=== PATIENT | female | born 1955 | race Caucasian/White ===

== ENCOUNTER 2020-05-03 07:04 | Day surgery (SDC) | payer BC, OTHER ==
[~2020-05-03 07:04] MED LIST: Lactated Ringers 1,000 ML IV SCH
[2020-05-03] MEDS ORDERED: Propofol 200 MG/20 ML SDV ONE (08:44)
[2020-05-03] MEDS ORDERED: Midazolam 1 MG/ML 2 ML SDV ONE (08:44)
[2020-05-03] MEDS ORDERED: Ondansetron 4 MG/2 ML SDV ONE (08:54)
[2020-05-03] MEDS ORDERED: fentaNYL 100 MCG/2 ML SDV ONE (08:54)
--- NOTE | 2020-05-03 12:42 | OR ---
DATE OF SURGERY: 05/03/2020. REFERRING PROVIDER: Lizz Krishnamurthy MD PRE-OPERATIVE DIAGNOSES: Positive FIT stool card. This is the patient's first colonoscopy. She denies any family history of colon cancer or advanced polyps. POST-OPERATIVE DIAGNOSES: 1. Three small polyps removed using cold forceps. a. 4 mm polyp at 30 cm. b. 3 mm polyp x2 at 12 cm. 2. Mild sigmoid diverticulosis. 3. Moderate hemorrhoids. 4. Normal distal ileum. PROCEDURE: Colonoscopy with polypectomy x3 using cold forceps. SURGEON: Skyler Robles M.D. ANESTHESIA: Monitored anesthesia care. BOWEL PREP: Good. Nikki is a 64-year-old female who was brought to the endoscopy suite after discussing risks and benefits of the procedure. Informed consent was obtained for conscious sedation and colonoscopy with or without biopsy and/or polypectomy. We also discussed possibility of missed lesions. Pre-procedure exam was unremarkable. IV, oxygen, and monitors were placed. The patient was placed in the left lateral decubitus position. Sedation was administered and a digital rectal exam was performed and was remarkable for some [id number] external hemorrhoids. Colonoscope was passed into the rectum and slowly advanced all the way to the cecum. Cecum was viewed and photographed. The ileocecal valve was intubated and distal ileum was normal in appearance. The colonoscope was slowly withdrawn and the mucosa was closed observed in a direct circumferential manner. The ascending colon was unremarkable. The transverse colon was unremarkable. The descending colon was unremarkable. The sigmoid colon revealed 4 mm polyp at 30 cm which was removed using 2 bites of cold forceps. There was also some mild sigmoid diverticulosis noted. At the rectosigmoid junction, there was a 3 mm polyp x2 at around 10 to 12 cm from the anal verge. These were removed using cold forceps. Retroflexion was performed and rectal mucosa was remarkable for moderate hemorrhoids. Scope was removed. The patient tolerated the procedure well. The patient was monitored until that baseline status. Discharge instructions were reviewed and the patient was discharged in good condition. COMPLICATIONS: None. TOTAL TIME: 14 minutes. ESTIMATED BLOOD LOSS: Less than 1 mL. RECOMMENDATIONS/FOLLOW-UP: We will await results of path report to determine ideal followup interval. I would like to kindly thank Lizz Krishnamurthy for this referral. DMB: 05/03/2020 09:32:28 MODL: 05/03/2020 12:04:41 /[id number]
== END 2020-05-03 09:55 | disposition home or self-care (01) ==
LOC: VM.SDS 07:04
PROVIDERS: ATTEND Family Medicine
DX: D12.5 Benign neoplasm of sigmoid colon (principal); K62.1 Rectal polyp; K57.30 Diverticulosis of large intestine without perforation or abscess without bleeding; K64.9 Unspecified hemorrhoids; I10 Essential (primary) hypertension; M54.41 Lumbago with sciatica, right side; M54.42 Lumbago with sciatica, left side; Z11.59 Encounter for screening for other viral diseases; Z79.899 Other long term (current) drug therapy; Z88.2 Allergy status to sulfonamides; Z72.0 Tobacco use
CPT/HCPCS: 00811; J2250; J2405; J2704; J3010; J7120; U0002

== ENCOUNTER 2022-11-23 17:48 | Inpatient (IN) | payer MEDICARE ==
[2022-11-23] MEDS ORDERED: Albuterol/Ipratropium 3.0-0.5 MG/3 ML Neb Soln NEB ONE (17:55)
[2022-11-23] MEDS ORDERED: methylPREDNISolone Sodium Succinate 125 MG/2 ML SDV IV ONE (17:58)
[2022-11-23] MEDS ORDERED: Azithromycin 500 MG in Sodium Chloride 0.9% 250 ML IV ONE (18:17)
[2022-11-23] MEDS ORDERED: cefTRIAXone 2 GM Vial IVPUSH ONE (18:17)
[2022-11-23 18:43] LABS: PTT,PARTIAL THROMBOPLSTIN TIME 26.5 SEC (20.5-30.9)
[2022-11-23 18:52] LABS: CHLORIDE,CL 84 mmol/L (98-107)
[2022-11-23 18:56] LABS: ANION GAP 8.3 mmol/L (5-15); ESTIMATED GFR 80 mL/min (>=60); SODIUM,NA 123 mmol/L (136-145)
[2022-11-23 18:59] LABS: CORONAVIRUS COVID-19 NAA NEGATIVE (NEGATIVE)
[2022-11-23 19:00] LABS: RESPIRATORY SYNCYTIAL VIR NAA NEGATIVE (NEGATIVE)
[2022-11-23 19:00] LABS: PCO2 ARTERIAL,POC 58 mmHg (35-48)
[2022-11-23] MEDS ORDERED: Sodium Chloride 0.9% 1,000 ML IV SCH (19:15)
[2022-11-23] MEDS: Albuterol/Ipratropium 3.0-0.5 MG/3 ML Neb Soln NEB SCH (20:18)
[2022-11-23] MEDS: Pantoprazole 40 MG Vial IVPUSH SCH (20:20)
[2022-11-23] MEDS: atorvaSTATin 10 MG Tab PO SCH (20:20)
[2022-11-23] MEDS: Nicotine 21 MG/24 Hr Patch TRDERM SCH (20:21)
[2022-11-23] MEDS ORDERED: Furosemide 20 MG/2 ML VIAL IV ONE (23:00)
[2022-11-23] MEDS: NS + KCl 20mEq/L 1,000 ML IV SCH (23:38)
[2022-11-24] MEDS: methylPREDNISolone Sodium Succinate 125 MG/2 ML SDV IVPUSH SCH ×3 (01:19→17:07)
[2022-11-24] MEDS: Sodium Chloride 0.9% 10 ML Syringe FLUSH PRN (01:24)
[2022-11-24] MEDS: NS + KCl 20mEq/L 1,000 ML IV SCH ×2 (06:40→17:14)
[2022-11-24 07:36] LABS: ANION GAP 7.7 mmol/L (5-15)
[2022-11-24] MEDS: Albuterol/Ipratropium 3.0-0.5 MG/3 ML Neb Soln NEB SCH ×4 (07:47→20:17)
[2022-11-24] MEDS: Nicotine 21 MG/24 Hr Patch TRDERM SCH (08:48)
[2022-11-24] MEDS: Venlafaxine 75 MG Cap.ER PO SCH (08:49)
[2022-11-24] MEDS: cefTRIAXone 2 GM Vial IVPUSH SCH (08:49)
[2022-11-24] MEDS: Pantoprazole 40 MG Vial IVPUSH SCH (08:49)
[2022-11-24] MEDS: Azithromycin 250 MG Tab PO SCH (08:50)
[2022-11-24] MEDS: Magnesium Oxide 400 MG Tab PO SCH (08:50)
[2022-11-24] MEDS: Potassium Chloride 20 MEQ Tab.ER PO SCH (08:50)
[2022-11-24] MEDS: Lisinopril 5 MG Tab PO SCH (08:51)
[2022-11-24] MEDS: Furosemide 20 MG Tab PO SCH (09:07)
[2022-11-24] MEDS ORDERED: Albuterol/Ipratropium 3.0-0.5 MG/3 ML Neb Soln NEB PRN (18:58)
[2022-11-24] MEDS: atorvaSTATin 10 MG Tab PO SCH (20:16)
[2022-11-24] MEDS: Pantoprazole 40 MG Tab.CR PO SCH (20:17)
[2022-11-25] MEDS: Sodium Chloride 0.9% 10 ML Syringe FLUSH PRN ×3 (01:04→20:45)
[2022-11-25] MEDS: methylPREDNISolone Sodium Succinate 125 MG/2 ML SDV IVPUSH SCH ×3 (01:04→20:42)
[2022-11-25] MEDS: NS + KCl 20mEq/L 1,000 ML IV SCH (05:49)
[2022-11-25 07:02] LABS: CHLORIDE,CL 94 mmol/L (98-107); SODIUM,NA 132 mmol/L (136-145)
[2022-11-25 07:03] LABS: ANION GAP 9.1 mmol/L (5-15); ESTIMATED GFR 80 mL/min (>=60)
[2022-11-25] MEDS: Albuterol/Ipratropium 3.0-0.5 MG/3 ML Neb Soln NEB SCH ×4 (07:20→20:02)
[2022-11-25] MEDS: Potassium Chloride 20 MEQ Tab.ER PO SCH (08:20)
[2022-11-25] MEDS: Magnesium Oxide 400 MG Tab PO SCH (08:20)
[2022-11-25] MEDS: Venlafaxine 75 MG Cap.ER PO SCH (08:21)
[2022-11-25] MEDS: Furosemide 20 MG Tab PO SCH (08:21)
[2022-11-25] MEDS: Azithromycin 250 MG Tab PO SCH (08:21)
[2022-11-25] MEDS: Lisinopril 5 MG Tab PO SCH (08:21)
[2022-11-25] MEDS: cefTRIAXone 2 GM Vial IVPUSH SCH (08:22)
[2022-11-25] MEDS: Nicotine 21 MG/24 Hr Patch TRDERM SCH (13:04)
[2022-11-25] MEDS ORDERED: Acetaminophen 325 MG Tab PO PRN (19:58)
[2022-11-25] MEDS: atorvaSTATin 10 MG Tab PO SCH (20:04)
[2022-11-25] MEDS: Pantoprazole 40 MG Tab.CR PO SCH (20:04)
[2022-11-26] MEDS: Acetaminophen 325 MG Tab PO PRN ×2 (02:16→08:19)
[2022-11-26] MEDS: Albuterol 0.083% 2.5 MG/3 ML Neb Soln NEB PRN (02:20)
[2022-11-26] MEDS: Albuterol/Ipratropium 3.0-0.5 MG/3 ML Neb Soln NEB SCH ×3 (07:22→14:48)
[2022-11-26] MEDS: Nicotine 21 MG/24 Hr Patch TRDERM SCH (08:14)
[2022-11-26] MEDS: cefTRIAXone 2 GM Vial IVPUSH SCH (08:14)
[2022-11-26] MEDS: methylPREDNISolone Sodium Succinate 125 MG/2 ML SDV IVPUSH SCH (08:15)
[2022-11-26] MEDS: Furosemide 20 MG Tab PO SCH (08:16)
[2022-11-26] MEDS: Lisinopril 5 MG Tab PO SCH (08:17)
[2022-11-26] MEDS: Venlafaxine 75 MG Cap.ER PO SCH (08:18)
[2022-11-26] MEDS: Potassium Chloride 20 MEQ Tab.ER PO SCH (08:18)
[2022-11-26] MEDS: Magnesium Oxide 400 MG Tab PO SCH (08:18)
[2022-11-26] MEDS: Azithromycin 250 MG Tab PO SCH (08:19)
[2022-11-26] MEDS: Pantoprazole 40 MG Vial IVPUSH SCH ×2 (10:58→20:14)
[2022-11-26] MEDS: Ipratropium 0.02% 0.5 MG/2.5 ML Neb Soln INH SCH (20:12)
[2022-11-26] MEDS: Albuterol 0.083% 2.5 MG/3 ML Neb Soln INH SCH (20:13)
[2022-11-26] MEDS: methylPREDNISolone Sodium Succinate 40 MG/1 ML SDV IVPUSH SCH (20:14)
[2022-11-26] MEDS: traZODone 50 MG Tab PO SCH (20:15)
[2022-11-26] MEDS: atorvaSTATin 10 MG Tab PO SCH (20:15)
[2022-11-27] MEDS: Albuterol 0.083% 2.5 MG/3 ML Neb Soln NEB PRN ×2 (03:32→22:59)
[2022-11-27] MEDS: Ipratropium 0.02% 0.5 MG/2.5 ML Neb Soln INH SCH ×4 (06:00→20:17)
[2022-11-27] MEDS: Albuterol 0.083% 2.5 MG/3 ML Neb Soln INH SCH ×4 (06:01→20:17)
[2022-11-27 07:12] LABS: ANION GAP 7.2 mmol/L (5-15)
[2022-11-27] MEDS: Magnesium Oxide 400 MG Tab PO SCH (07:59)
[2022-11-27] MEDS: cefTRIAXone 2 GM Vial IVPUSH SCH (08:02)
[2022-11-27] MEDS: Pantoprazole 40 MG Vial IVPUSH SCH ×2 (08:03→20:18)
[2022-11-27] MEDS: methylPREDNISolone Sodium Succinate 40 MG/1 ML SDV IVPUSH SCH ×2 (08:09→20:17)
[2022-11-27] MEDS: Azithromycin 250 MG Tab PO SCH (08:10)
[2022-11-27] MEDS: Lisinopril 5 MG Tab PO SCH (08:14)
[2022-11-27] MEDS: Potassium Chloride 20 MEQ Tab.ER PO SCH (08:14)
[2022-11-27] MEDS: Nicotine 21 MG/24 Hr Patch TRDERM SCH (08:15)
[2022-11-27] MEDS: Venlafaxine 75 MG Cap.ER PO SCH (08:15)
[2022-11-27] MEDS: Furosemide 20 MG Tab PO SCH (08:15)
[2022-11-27] MEDS: traZODone 50 MG Tab PO SCH (20:18)
[2022-11-27] MEDS: atorvaSTATin 10 MG Tab PO SCH (20:18)
[2022-11-27] MEDS: Sodium Chloride 0.9% 10 ML Syringe FLUSH PRN (20:19)
[2022-11-28] MEDS: Ipratropium 0.02% 0.5 MG/2.5 ML Neb Soln INH SCH ×5 (05:59→20:08)
[2022-11-28] MEDS: Albuterol 0.083% 2.5 MG/3 ML Neb Soln INH SCH ×5 (05:59→20:08)
[2022-11-28 07:12] LABS: CHLORIDE,CL 93 mmol/L (98-107); SODIUM,NA 134 mmol/L (136-145)
[2022-11-28 07:13] LABS: ANION GAP 6.5 mmol/L (5-15); ESTIMATED GFR 80 mL/min (>=60)
[2022-11-28] MEDS: Nicotine 21 MG/24 Hr Patch TRDERM SCH (08:00)
[2022-11-28] MEDS: cefTRIAXone 2 GM Vial IVPUSH SCH (08:01)
[2022-11-28] MEDS: methylPREDNISolone Sodium Succinate 40 MG/1 ML SDV IVPUSH SCH (08:03)
[2022-11-28] MEDS: Pantoprazole 40 MG Vial IVPUSH SCH (08:04)
[2022-11-28] MEDS: Lisinopril 5 MG Tab PO SCH (08:05)
[2022-11-28] MEDS: Furosemide 20 MG Tab PO SCH (08:05)
[2022-11-28] MEDS: Azithromycin 250 MG Tab PO SCH (08:05)
[2022-11-28] MEDS: Venlafaxine 75 MG Cap.ER PO SCH (08:05)
[2022-11-28] MEDS: Potassium Chloride 20 MEQ Tab.ER PO SCH (08:06)
[2022-11-28] MEDS: predniSONE 20 MG Tab PO SCH (14:43)
[2022-11-28] MEDS: Pantoprazole 40 MG Tab.CR PO SCH (17:20)
[2022-11-28] MEDS: Nystatin Susp 100,000 Unit/ML 5 ML UD Cup PO SCH ×2 (19:34→20:08)
[2022-11-28] MEDS: Sodium Chloride 0.9% 10 ML Syringe FLUSH PRN (19:35)
[2022-11-28] MEDS: traZODone 50 MG Tab PO SCH ×2 (19:35→20:08)
[2022-11-28] MEDS: atorvaSTATin 10 MG Tab PO SCH ×2 (19:35→20:09)
[2022-11-29] MEDS: Ipratropium 0.02% 0.5 MG/2.5 ML Neb Soln INH SCH ×2 (06:04→11:17)
[2022-11-29] MEDS: Albuterol 0.083% 2.5 MG/3 ML Neb Soln INH SCH ×2 (06:04→11:17)
[2022-11-29] MEDS: Pantoprazole 40 MG Tab.CR PO SCH (06:04)
[2022-11-29] MEDS: Nicotine 21 MG/24 Hr Patch TRDERM SCH (08:34)
[2022-11-29] MEDS: Nystatin Susp 100,000 Unit/ML 5 ML UD Cup PO SCH (08:35)
[2022-11-29] MEDS: Venlafaxine 75 MG Cap.ER PO SCH (08:35)
[2022-11-29] MEDS: Lisinopril 5 MG Tab PO SCH (08:37)
[2022-11-29] MEDS: Potassium Chloride 20 MEQ Tab.ER PO SCH (08:37)
[2022-11-29] MEDS: predniSONE 20 MG Tab PO SCH (08:37)
[2022-11-29] MEDS: Furosemide 20 MG Tab PO SCH (08:37)
== END 2022-11-29 14:42 | disposition swing bed (61) | DRG 811 ==
LOC: VM.ED 17:48 → VM.MS 19:06
PROVIDERS: ADMIT Family Medicine; ATTEND Family Medicine
PROC: 30233N1 Transfusion of Nonautologous Red Blood Cells into Peripheral Vein, Percutaneous Approach (ICD-10-PCS; principal; 2022-11-23)
DX: D50.9 Iron deficiency anemia, unspecified (principal); J96.01 Acute respiratory failure with hypoxia; J44.1 Chronic obstructive pulmonary disease with (acute) exacerbation; E87.1 Hypo-osmolality and hyponatremia; K92.1 Melena; E87.6 Hypokalemia; D72.829 Elevated white blood cell count, unspecified; Z20.822 Contact with and (suspected) exposure to COVID-19; T38.0X5A Adverse effect of glucocorticoids and synthetic analogues, initial encounter; M54.50 Low back pain, unspecified; G89.29 Other chronic pain; F32.A Depression, unspecified; E78.00 Pure hypercholesterolemia, unspecified; R32 Unspecified urinary incontinence; Z88.2 Allergy status to sulfonamides; Z90.710 Acquired absence of both cervix and uterus; Z90.49 Acquired absence of other specified parts of digestive tract; Z98.49 Cataract extraction status, unspecified eye
CPT/HCPCS: 0241U; 36415; 36430; 36600; 71045; 71046; 80048; 80053; 81001; 82274; 82728; 82803; 83540; 83550; 83605; 83690; 83735; 83880; 84100; 84145; 84484; 85025; 85379; 85610; 85730; 86140; 86850; 86900; 86901; 86920; 86922; 87040; 87205; 87338; 93010; 94640; 94760; 96365; 96375; 97112-GP; 97116-GP; 97162-GP; 99284; 99285-25; A9270-GY; C9113; J0456; J0696; J1940; J2920; J2930; J3480; J3490; J7030; J7050; J7512; J7613-GY; J7620-GY; P9016

== ENCOUNTER 2022-11-29 12:16 | Inpatient (IN) | payer MEDICARE ==
[2022-11-29] MEDS ORDERED: Acetaminophen 325 MG Tab PO PRN (12:33)
[2022-11-29] MEDS ORDERED: Albuterol/Ipratropium 3.0-0.5 MG/3 ML Neb Soln NEB PRN (12:40)
[2022-11-29] MEDS ORDERED: Sodium Chloride 0.9% 10 ML Syringe FLUSH PRN (12:41)
[2022-11-29] MEDS: Albuterol/Ipratropium 3.0-0.5 MG/3 ML Neb Soln NEB SCH ×3 (15:33→22:02)
[2022-11-29] MEDS: Nystatin Susp 100,000 Unit/ML 5 ML UD Cup PO SCH ×3 (15:33→20:51)
[2022-11-29] MEDS: Pantoprazole 40 MG Tab.CR PO SCH (17:44)
[2022-11-29] MEDS: atorvaSTATin 10 MG Tab PO SCH (20:51)
[2022-11-29] MEDS: traZODone 50 MG Tab PO SCH (20:52)
[2022-11-30] MEDS: Albuterol/Ipratropium 3.0-0.5 MG/3 ML Neb Soln NEB SCH ×6 (03:53→22:00)
[2022-11-30] MEDS: Pantoprazole 40 MG Tab.CR PO SCH ×2 (06:30→17:01)
[2022-11-30] MEDS: Furosemide 20 MG Tab PO SCH (08:04)
[2022-11-30] MEDS: Venlafaxine 75 MG Cap.ER PO SCH (08:04)
[2022-11-30] MEDS: Nystatin Susp 100,000 Unit/ML 5 ML UD Cup PO SCH ×4 (08:04→21:53)
[2022-11-30] MEDS: Cholecalciferol (Vitamin D3) 25 MCG Tab PO SCH (08:05)
[2022-11-30] MEDS: Multivitamin Tab PO SCH (08:05)
[2022-11-30] MEDS: Ascorbic Acid 500 MG Tab PO SCH (08:05)
[2022-11-30] MEDS: Lisinopril 5 MG Tab PO SCH (08:06)
[2022-11-30] MEDS: predniSONE 20 MG Tab PO SCH (08:07)
[2022-11-30] MEDS: Potassium Chloride 20 MEQ Tab.ER PO SCH (08:07)
[2022-11-30] MEDS: Nicotine 21 MG/24 Hr Patch TRDERM SCH (08:08)
[2022-11-30 08:31] LABS: ANION GAP 9.7 mmol/L (5-15)
[2022-11-30] MEDS: atorvaSTATin 10 MG Tab PO SCH (21:52)
[2022-11-30] MEDS: traZODone 50 MG Tab PO SCH (21:52)
[2022-12-01] MEDS: Albuterol/Ipratropium 3.0-0.5 MG/3 ML Neb Soln NEB SCH ×3 (03:35→10:50)
[2022-12-01] MEDS: Pantoprazole 40 MG Tab.CR PO SCH (06:25)
[2022-12-01] MEDS: Multivitamin Tab PO SCH (08:08)
[2022-12-01] MEDS: Ascorbic Acid 500 MG Tab PO SCH (08:08)
[2022-12-01] MEDS: Venlafaxine 75 MG Cap.ER PO SCH (08:08)
[2022-12-01] MEDS: Lisinopril 5 MG Tab PO SCH (08:08)
[2022-12-01] MEDS: Potassium Chloride 20 MEQ Tab.ER PO SCH (08:08)
[2022-12-01] MEDS: predniSONE 20 MG Tab PO SCH (08:08)
[2022-12-01] MEDS: Cholecalciferol (Vitamin D3) 25 MCG Tab PO SCH (08:08)
[2022-12-01] MEDS: Furosemide 20 MG Tab PO SCH (08:08)
[2022-12-01] MEDS: Nicotine 21 MG/24 Hr Patch TRDERM SCH (08:09)
[2022-12-01] MEDS: Nystatin Susp 100,000 Unit/ML 5 ML UD Cup PO SCH ×2 (08:11→12:02)
== END 2022-12-01 13:35 | disposition home or self-care (01) | DRG 948 ==
LOC: VM.MS 12:32 → UNDOADMIN 12:32 → VM.MS 14:42
PROVIDERS: ADMIT Nurse Practitioner Family; ATTEND Family Medicine
DX: R53.81 Other malaise (principal); K92.2 Gastrointestinal hemorrhage, unspecified; I10 Essential (primary) hypertension; F32.A Depression, unspecified; J44.9 Chronic obstructive pulmonary disease, unspecified; D64.9 Anemia, unspecified; E78.5 Hyperlipidemia, unspecified; F43.20 Adjustment disorder, unspecified; M54.50 Low back pain, unspecified; G89.29 Other chronic pain; Z90.710 Acquired absence of both cervix and uterus; Z98.49 Cataract extraction status, unspecified eye; Z88.2 Allergy status to sulfonamides; Z98.890 Other specified postprocedural states; Z79.899 Other long term (current) drug therapy
CPT/HCPCS: 36415; 80053; 85025; 94640; 97116-GP; A9270-GY; J7512; J7620-GY

== ENCOUNTER 2024-04-11 22:30 | Emergency (ER) | payer MEDICARE ==
[2024-04-11 22:49] LABS: BASOPHILS PERCENT AUTO 0.1 % (0.2-1.2); EOSINOPHILS ABSOLUTE AUTO 0.1 x10^3/uL (0.0-0.5); EOSINOPHILS PERCENT AUTO 0.7 % (0.0-4.0); HEMATOCRIT 33.4 % (33.0-47.0); HEMOGLOBIN 10.9 g/dL (12.0-16.0); IMMATURE GRAN ABSOLUTE AUTO 0.08 x10^3/uL (0.00-0.07); LYMPHOCYTES ABSOLUTE AUTO 2.3 x10^3/uL (1.0-4.8); LYMPHOCYTES PERCENT AUTO 15.8 % (25.0-50.0); MEAN CORPUSCULAR HEMOGLOBIN 31.6 pg (26.0-32.0); MEAN CORPUSCULAR HGB CONC 32.6 g/dL (32.0-36.0); MEAN CORPUSCULAR VOLUME 96.8 fL (78.0-93.0); MONOCYTES ABSOLUTE AUTO 0.8 x10^3/uL (0.0-0.8); MONOCYTES PERCENT AUTO 5.6 % (2.0-11.0); NEUTROPHILS PERCENT AUTO 77.2 % (50.0-80.0); PLATELET COUNT,PLT 280 x10^3/uL (130-400); RED BLOOD CELL COUNT 3.45 x10^6/uL (4.00-5.50); WHITE BLOOD CELL COUNT,WBC 14.3 x10^3/uL (4.0-10.0)
[2024-04-11 22:58] LABS: ANION GAP 19.9 mmol/L (5-15); BLOOD UREA NITROGEN,BUN 26 mg/dL (7-18); CALCIUM 9.8 mg/dL (8.5-10.1); CARBON DIOXIDE,CO2 23 mmol/L (21-32); CHLORIDE,CL 99 mmol/L (98-107); CREATININE 1.5 mg/dL (0.55-1.02); ESTIMATED GFR 37 mL/min (>=60); GLUCOSE RANDOM 163 mg/dL (70-99); POTASSIUM,K 3.9 mmol/L (3.5-5.1); SODIUM,NA 138 mmol/L (136-145)
== END 2024-04-12 00:30 | disposition home or self-care (01) ==
LOC: VM.ED 22:30
DX: S01.01XA Laceration without foreign body of scalp, initial encounter (principal); S60.211A Contusion of right wrist, initial encounter; S60.212A Contusion of left wrist, initial encounter; I10 Essential (primary) hypertension; E78.00 Pure hypercholesterolemia, unspecified; J44.9 Chronic obstructive pulmonary disease, unspecified; Z90.49 Acquired absence of other specified parts of digestive tract; Z90.710 Acquired absence of both cervix and uterus; Z79.899 Other long term (current) drug therapy; Z88.2 Allergy status to sulfonamides; Z91.048 Other nonmedicinal substance allergy status; W01.0XXA Fall on same level from slipping, tripping and stumbling without subsequent striking against object, initial encounter
CPT/HCPCS: 12002; 36415; 70450; 72170; 73110-LT; 73110-RT; 80048; 85025; 99283; 99284